=== PATIENT | female | born 1985 | race Caucasian/White ===

== ENCOUNTER 2016-10-07 12:29 | Emergency (ER) | payer OTHER ==
[2016-10-07 13:45] VITALS: BP 109/68
[2016-10-07] MEDS ORDERED: Ibuprofen TAB* 600 MG PO ONE (13:58)
--- NOTE | 2016-10-07 13:59 | UC ---
Lower Extremity/Ankle HPI - HPI Summary HPI Summary: 31 year old female comes into the clinic complaining of left wrist/hand pain and knee discomfort after a slip and fall down the court house steps. Patient came down directly onto the left knee and left hand, then proceeded to fall down at least four more steps. Patient states she has a 10/10 pain in both locations. WRIST: Unable to isolate pain in the left wrist/hand, states it is both sides of the medial wrist, and located in the entire hand. KNEE:Pain located to the knee cap, states she feels pain in the popliteal space. Pain increased with extension of the left leg and when weight bearing. - History of Current Complaint Stated Complaint: KNEE INJURY Time Seen by Provider: 10/07/16 12:52 Hx Obtained From: Patient Hx Last Menstrual Period: pt has mirena and does not get menses ?: No Onset/Duration: Sudden Onset Severity Initially: Severe Severity Currently: Moderate Pain Intensity: 10 - No signs of grimacing, patient able to be distracted Pain Scale Used: 0-10 Numeric Aggravating Factor(s): Standing, Ambulation Alleviating Factor(s): Other - Patient has yet to try any alleviating interventions Able to Bear Weight: Yes - Knee is stable when bearing weight - Risk Factors Gout Risk Factors: Negative Septic Arthritis Risk Factor: Negative - Allergies/Home Medications Allergies/Adverse Reactions: Allergies Allergy/AdvReac Type Severity Reaction Status Date / Time Omeprazole AdvReac Mild GI Upset Verified 10/07/16 13:37 [From Prilosec OTC] Home Medications: Home Medications NK [No Home Medications Reported] 10/07/16 [History Confirmed 10/07/16] PMH/Surg Hx/FS Hx/Imm Hx Previously Healthy: Yes Endocrine History Of: Denies: Diabetes, Thyroid Disease, Hypothyroidism Cardiovascular History Of: Denies: Cardiac Disorders, Hypertension Respiratory History Of: Reports: Asthma Denies: COPD GI/ History Of: Denies: Ulcer Neurological History Of: Denies: TIA, Dementia, Seizures Psychological History Of: Reports: Anxiety, Depression - Surgical History Surgical History: None Surgery Procedure, Year, and Place: none - Family History Known Family History: Positive: Cardiac Disease - Mother: Heart failure, Diabetes - Mother: Kidney/heart failure; DM2; hypothyroidism, Renal Disease - Mother: at age 5151 years old r/t kidney failure - Social History Occupation: Employed Part-time - [place] Lives: With Family - With boyfriend in an apartment Alcohol Use: None Substance Use Type: None Smoking Status (MU): Heavy Every Day Tobacco Smoker Type: Cigarettes Amount Used/How Often: 1/2 -1 ppd Have You Smoked in the Last Year: Yes When Did the Patient Quit Smoking/Using Tobacco: started at age 13 Household Exposure Type: Cigarettes Cessation Counseling: Patient Advised to Stop Review of Systems Constitutional: Negative Skin: Bruising - Left knee Eyes: Negative ENT: Negative Respiratory: Negative Cardiovascular: Negative Gastrointestinal: Negative Genitourinary: Negative Motor: Decreased ROM - Left knee/ wrist limited ROM related to patient's pain Neurovascular: Negative Musculoskeletal: Decreased ROM - Left knee/left wrist, Edema - Left knee Psychological: Anxious All Other Systems Reviewed And Are Negative: Yes Physical Exam Triage Information Reviewed: Yes Appearance: Well-Appearing, No Pain Distress Vital Signs: Initial Vital Signs Temp 97.5 F 10/07/16 13:31 Pulse 66 10/07/16 13:31 Resp 16 10/07/16 13:31 BP 109/68 10/07/16 13:31 Pulse Ox 100 10/07/16 13:31 Vital Signs Reviewed: Yes Eye Exam: Normal Eyes: Positive: Conjunctiva Clear ENT Exam: Normal ENT: Positive: Normal ENT inspection, Hearing grossly normal, Pharynx normal, TMs normal Dental Exam: Normal Neck exam: Normal Neck: Positive: Supple, Nontender, No Lymphadenopathy Respiratory Exam: Normal Respiratory: Positive: Chest non-tender, Lungs clear, Normal breath sounds Cardiovascular Exam: Normal Cardiovascular: Positive: RRR, No Murmur, Pulses Normal Abdominal Exam: Normal Abdomen Description: Positive: Nontender, No Organomegaly, Soft Bowel Sounds: Positive: Present Musculoskeletal: Positive: Strength Limited @ - Left knee/wrist, ROM Limited @ - Left wrist and hand related to pain Psychological Exam: Normal Skin Exam: Other Skin: Positive: Other - Redness and minor swelling to the left knee Lower Extremity Course/Dx - Differential Dx/Diagnosis Provider Diagnoses: Wrist Injury. Knee contusion Discharge - Discharge Plan Condition: Stable Disposition: HOME Patient Education Materials: Knee Pain (ED), Wrist Injury (ED) Referrals: Nicole Barahona MD [Primary Care Provider] - If Needed () Additional Instructions: If symptoms fail to improve within the week, follow-up with primary care provider. Seek immediately medical attention for loss of sensation in the left sided extremities.
--- NOTE | 2016-10-07 14:53 | RAD ---
INDICATION: Left knee injury. Fall. COMPARISON: None TECHNIQUE: AP, lateral, tunnel, and sunrise were obtained. FINDINGS: The bony structures, joint spaces, and soft tissues are normal for age. IMPRESSION: NEGATIVE EXAMINATION.
--- NOTE | 2016-10-07 14:55 | RAD ---
INDICATION: Left hand injury. Pain. COMPARISON: None TECHNIQUE: AP, lateral, and oblique views were obtained. FINDINGS: The bony structures, joint spaces, and soft tissues are normal for age. IMPRESSION: NEGATIVE EXAMINATION.
== END 2016-10-07 15:00 | disposition home or self-care (01) ==
LOC: UCEAST 12:29
DX: S69.92XA Unspecified injury of left wrist, hand and finger(s), initial encounter (principal); S80.02XA Contusion of left knee, initial encounter; W10.9XXA Fall (on) (from) unspecified stairs and steps, initial encounter; Y93.89 Activity, other specified; Y92.240 Courthouse as the place of occurrence of the external cause; Z88.8 Allergy status to other drugs, medicaments and biological substances; F17.210 Nicotine dependence, cigarettes, uncomplicated
CPT/HCPCS: 99213; A9270-GY; G0463

== ENCOUNTER 2018-06-09 20:01 | Emergency (ER) | payer SELFPAY ==
[2018-06-09 20:55] VITALS: BP 123/72
--- NOTE | 2018-06-09 21:05 | UC ---
Upper Extremity HPI - HPI Summary HPI Summary: WHILE REACHING FOR AN OBJECT 3 DAYS AGO, FELT AND HEARD A POP IN HER WRIST. C/O PAIN SINCE. NO HX INJURY. - History of Current Complaint Chief Complaint: UCUpperExtremity Stated Complaint: LEFT WRIST INJURY Time Seen by Provider: 06/09/18 20:53 Hx Obtained From: Patient Hx Last Menstrual Period: pt has mirena and does not get menses Onset/Duration: Sudden Onset Pain Intensity: 9 Aggravating Factor(s): Movement Alleviating Factor(s): Nothing Associated Signs And Symptoms: Negative: Swelling, Bruising, Weakness, Numbness/ Tingling - Allergies/Home Medications Allergies/Adverse Reactions: Allergies Allergy/AdvReac Type Severity Reaction Status Date / Time omeprazole AdvReac GI Upset Verified 06/09/18 20:54 sumatriptan [From Imitrex] AdvReac Nausea And Verified 06/09/18 20:54 Vomiting Home Medications: Home Medications Ibuprofen TAB* [Advil TAB*] 400 mg PO Q6H PRN 06/09/18 [History Confirmed ] PMH/Surg Hx/FS Hx/Imm Hx Respiratory History: Asthma - Surgical History Surgical History: None Surgery Procedure, Year, and Place: none - Family History Known Family History: Positive: Cardiac Disease - Mother: Heart failure, Diabetes - Mother: Kidney/heart failure; DM2; hypothyroidism, Renal Disease - Mother: at age 5151 years old r/t kidney failure - Social History Occupation: Employed Full-time Lives: With Family Alcohol Use: None Substance Use Type: Marijuana Substance Use Comment - Amount & Last Used: weekly Smoking Status (MU): Heavy Every Day Tobacco Smoker Type: Cigarettes Amount Used/How Often: 1/2 -1 ppd Have You Smoked in the Last Year: Yes When Did the Patient Quit Smoking/Using Tobacco: started at age 13 Household Exposure Type: Cigarettes - Immunization History Vaccination Up to Date: Yes Review of Systems Constitutional: Negative Skin: Negative Eyes: Negative ENT: Negative Respiratory: Negative Cardiovascular: Negative Gastrointestinal: Negative Genitourinary: Negative Motor: Negative Neurovascular: Negative Musculoskeletal: Other: - l WRIST PAIN Neurological: Negative Psychological: Negative Is Patient Immunocompromised?: No All Other Systems Reviewed And Are Negative: Yes Physical Exam Triage Information Reviewed: Yes Appearance: Well-Appearing Vital Signs: Initial Vital Signs Temp 97.9 F 06/09/18 20:48 Pulse 67 06/09/18 20:48 Resp 12 06/09/18 20:48 BP 123/72 06/09/18 20:48 Pulse Ox 100 06/09/18 20:48 Vital Signs Reviewed: Yes Eyes: Positive: Conjunctiva Clear ENT: Positive: Normal ENT inspection Neck: Positive: Supple, Nontender Respiratory: Positive: Lungs clear, Normal breath sounds Cardiovascular: Positive: RRR, No Murmur Abdomen Description: Positive: Nontender, No Organomegaly, Soft Bowel Sounds: Positive: Present Neurological: Positive: Other: - LUE: NO GROSS DEFORMITY, SWELLING OR DISCOLORATION. DORSAL AND VOLAR WRIST WITH GENERALIZED TENDERNESS TO PALPATION BUT NO CREPITATION OR INSTABILITY. HAND HAS FULL S/V/M FUNCTION. REST OF ARM HAS FULL S/V/M FUNCTION. Psychological: Positive: Age Appropriate Behavior Skin Exam: Normal Upper Extremity Course/Dx - Course Course Of Treatment: GIVEN HX AND PE, NO CONCERN FOR FX OR INFECTION. - Differential Dx/Diagnosis Provider Diagnoses: SPRAIN LEFT WRIST Discharge - Sign-Out/Discharge Documenting (check all that apply): Patient Departure All imaging exams completed and their final reports reviewed: No Studies - Discharge Plan Condition: Stable Disposition: HOME Patient Education Materials: Wrist Sprain (ED) Referrals: Gennaro Camacho MD [Medical Doctor] - 7 Days Additional Instructions: SPLINT UNTIL CLEARED - Billing Disposition and Condition Condition: STABLE Disposition: Home
== END 2018-06-09 21:07 | disposition home or self-care (01) ==
LOC: UCCORT 20:01
DX: S63.502A Unspecified sprain of left wrist, initial encounter (principal); J45.909 Unspecified asthma, uncomplicated; F17.210 Nicotine dependence, cigarettes, uncomplicated; Z88.8 Allergy status to other drugs, medicaments and biological substances; X50.9XXA Other and unspecified overexertion or strenuous movements or postures, initial encounter; Y92.9 Unspecified place or not applicable
CPT/HCPCS: 99212; G0463

== ENCOUNTER → 2018-10-29 13:51 | Emergency (ER) | payer OTHER | END | disposition left against medical advice (07) | LOC: UCCORT 13:51 | DX: Z53.21 Procedure and treatment not carried out due to patient leaving prior to being seen by health care provider (principal) ==

== ENCOUNTER 2018-12-05 08:09 | Emergency (ER) | payer OTHER ==
[2018-12-05 08:20] VITALS: BP 116/70
--- NOTE | 2018-12-05 08:39 | UC ---
FLU HPI - HPI Summary HPI Summary: 33-year-old female presents with 2 day history of general malaise, chills, fatigue, body aches, nasal congestion, clear nasal discharge, sore throat, occasional productive cough, and posttussive emesis. Reports yesterday had a low-grade fever of 99.8 F. Did no receive her flu shot this year. Denies ear pain, dysphagia, chest pain, shortness of breath, abdominal pain, or diarrhea. - History of Current Complaint Chief Complaint: UCRespiratory Stated Complaint: THROAT/FLU SXS Time Seen by Provider: 12/05/18 08:19 Hx Obtained From: Patient Hx Last Menstrual Period: MIRENA IUD Pain Intensity: 8 - Allergy/Home Medications Allergies/Adverse Reactions: Allergies Allergy/AdvReac Type Severity Reaction Status Date / Time codeine Allergy Vomiting Verified 12/05/18 08:18 omeprazole AdvReac GI Upset Verified 12/05/18 08:18 sumatriptan [From Imitrex] AdvReac Nausea And Verified 12/05/18 08:18 Vomiting PMH/Surg Hx/FS Hx/Imm Hx Previously Healthy: Yes GI/ History: Gastroesophageal Reflux Neurological History: Migraine - Surgical History Surgical History: None Surgery Procedure, Year, and Place: none - Family History Known Family History: Positive: Cardiac Disease - Mother: Heart failure, Diabetes - Mother: Kidney/heart failure; DM2; hypothyroidism, Renal Disease - Mother: at age 5151 years old r/t kidney failure - Social History Occupation: Employed Full-time Lives: With Family Alcohol Use: None Substance Use Type: None Substance Use Comment - Amount & Last Used: weekly Smoking Status (MU): Former Smoker Type: eCigarettes Amount Used/How Often: 1/2 -1 ppd Have You Smoked in the Last Year: Yes When Did the Patient Quit Smoking/Using Tobacco: started at age 13 Household Exposure Type: Cigarettes - Immunization History Vaccination Up to Date: Yes Review of Systems All Other Systems Reviewed And Are Negative: Yes Constitutional: Positive: Chills, Fatigue Skin: Negative: Rash Eyes: Negative: Drainage, Eye Redness ENT: Positive: Sore Throat, Nasal Discharge, Sinus Congestion. Negative: Ear Ache, Sinus Pain/Tenderness Respiratory: Positive: Cough. Negative: Shortness Of Breath Cardiovascular: Negative: Palpitations, Chest Pain Gastrointestinal: Positive: Vomiting, Nausea. Negative: Abdominal Pain, Diarrhea Genitourinary: Positive: Negative Musculoskeletal: Positive: Negative Neurological: Positive: Negative Is Patient Immunocompromised?: No Physical Exam - Summary Physical Exam Summary: GENERAL APPEARANCE: Well developed, well nourished, alert and cooperative, and appears to be in no acute distress. EYES: Conjunctiva clear. No drainage. Vision is grossly intact. EARS: External auditory canals and tympanic membranes clear, hearing grossly intact. NOSE: Moderate nasal congestion with nasal discharge. THROAT: Mild pharyngeal erythema. No tonsilar inflammation, swelling, exudate, or lesions. Uvula midline. Oral cavity normal. Teeth and gingiva in good general condition. NECK: Neck supple, non-tender without lymphadenopathy. CARDIAC: Normal S1 and S2. No S3, S4 or murmurs. Rhythm is regular. There is no peripheral edema, cyanosis or pallor. Extremities are warm and well perfused. Capillary refill is less than 2 seconds. Peripheral pulses intact. LUNGS: Clear to auscultation without rales, rhonchi, wheezing or diminished breath sounds. Dry, non-productive cough. ABDOMEN: Positive bowel sounds. Soft, nondistended, nontender. No guarding or rebound. No masses or hepatosplenomegally. MUSKULOSKELETAL: ROM intact to all extremities. No joint erythema or tenderness. Normal muscular development. Normal gait. SKIN: Skin normal color, texture and turgor with no lesions or eruptions. Triage Information Reviewed: Yes Vital Signs: Initial Vital Signs Temp 98 F 12/05/18 08:18 Pulse 79 12/05/18 08:18 Resp 20 12/05/18 08:18 BP 116/70 12/05/18 08:18 Pulse Ox 99 12/05/18 08:18 Vital Signs Reviewed: Yes Flu Course/Dx - Course Course Of Treatment: 33-year-old female presents with 2 day history of general malaise, chills, fatigue, body aches, nasal congestion, clear nasal discharge, sore throat, occasional productive cough, and posttussive emesis. Reports yesterday had a low-grade fever of 99.8 F. Did no receive her flu shot this year. Denies ear pain, dysphagia, chest pain, shortness of breath, abdominal pain, or diarrhea. Afebrile. Vital signs stable. Exam reveals an adult female in no acute distress with moderate nasal congestion, clear nasal discharge, mild pharyngeal erythema without tonsillar swelling or exudate, no cervical lymphadenopathy, clear bilateral breath sounds, a dry nonproductive cough, soft nontender abdomen , and otherwise unremarkable exam. Discussed with patient and her symptoms are consistent with influenza. Discussed risks and benefits of treating with Tamiflu which patient is electing to start at this time. Additionally recommending symptomatic treatment including Tessalon Perles one capsule every 8 hours as needed for cough. She is to return here or follow up with her primary care provider in 7 days if symptoms do not improve. Anticipatory guidance and warning symptoms were reviewed with the patient. Verbalizes understanding and agrees with plan of care. - Differential Dx/Diagnosis Differential Diagnosis/HQI/PQRI: Bronchitis, Influenza, Pneumonia, Upper Respiratory Infection Provider Diagnosis: Influenza Discharge - Sign-Out/Discharge Documenting (check all that apply): Patient Departure All imaging exams completed and their final reports reviewed: No Studies - Discharge Plan Condition: Stable Disposition: HOME Prescriptions: Benzonatate CAP* [Tessalon 100 MG CAP*] 100 mg PO TID PRN #30 cap PRN Reason: Cough Oseltamivir CAP* [Tamiflu CAP*] 75 mg PO BID #10 cap Patient Education Materials: Influenza (ED) Forms: *Work Release Referrals: No Primary Care Phys,NOPCP [Primary Care Provider] - Additional Instructions: Your history and exam are consistent with influenza although I cannot exclude another viral illness. Start Tamiflu 1 capsule twice a day for 5 days. Get plenty of rest. Drink plenty of fluids to avoid dehydration especially if you are running any fever. Take over the counter acetaminophen (Tylenol) or ibuprofen (Advil, Motrin) according to directions as needed for pain or fever. Take Tessalon Perles 1 cap every 8 hours as needed for cough. Use an over the counter decongestant such as Sudafed according to directions for the congestion. Use salt water gargles several times a day if you have a sore throat. You may also use Chloraseptic spray or Cepacol lonzenges according to directions which contain a numbing medication and can provide some temporary relief from your sore throat. Return here or follow up with your primary care provider in 7 days if symptoms persist. Seek immediate medical attention in the emergency room if you have fever greater than 100.5 F despite taking acetaminophen or ibuprofen, have chest pain , difficulty breathing, are unable to swallow, or have any worsening of symptoms. - Billing Disposition and Condition Condition: STABLE Disposition: Home - Attestation Statements Provider Attestation: Per institutional requirements, I have reviewed the chart, however, I was not consulted specifically or made aware of this patient by the midlevel provider. I did not personally evaluate, interact with , or disposition this patient
== END 2018-12-05 08:46 | disposition home or self-care (01) ==
LOC: UCCORT 08:09
DX: J11.1 Influenza due to unidentified influenza virus with other respiratory manifestations (principal); Z88.5 Allergy status to narcotic agent; Z88.8 Allergy status to other drugs, medicaments and biological substances; Z87.891 Personal history of nicotine dependence
CPT/HCPCS: 99212; G0463

== ENCOUNTER 2019-01-13 10:12 | Emergency (ER) | payer OTHER ==
[2019-01-13 10:45] VITALS: BP 98/69
--- NOTE | 2019-01-13 11:07 | UC ---
Lower Extremity/Ankle HPI - HPI Summary HPI Summary: Patient presents to urgent care for evaluation of injuring her right lower leg. Patient states part of her door frame fell on her when she was opening the door. Patient sustained ecchymosis and abrasion to her right lateral lower ankle. Patient states she had throbbing pain yesterday. Patient took Motrin yesterday and applied ice 1. Pt states continue to have pain which is worse when she moves her foot up and down. No paresthesias. No weakness. No knee pain or hip pain. Patient states her last tetanus was less than one year. Patient's is not . Medications reviewed this visit - History of Current Complaint Chief Complaint: UCLowerExtremity Stated Complaint: RIGHT ANKLE INJURY Time Seen by Provider: 01/13/19 10:39 Hx Obtained From: Patient Hx Last Menstrual Period: unknown ?: No Onset/Duration: Sudden Onset Severity Initially: Moderate Severity Currently: Moderate Pain Intensity: 9 Pain Scale Used: 0-10 Numeric - Allergies/Home Medications Allergies/Adverse Reactions: Allergies Allergy/AdvReac Type Severity Reaction Status Date / Time codeine Allergy Vomiting Verified 01/13/19 10:38 omeprazole AdvReac GI Upset Verified 01/13/19 10:38 sumatriptan [From Imitrex] AdvReac Nausea And Verified 01/13/19 10:38 Vomiting Home Medications: Home Medications Ibuprofen TAB* [Advil TAB*] 800 mg PO Q6H PRN 01/13/19 [History Confirmed ] Levonorgestrel (Iud) [Mirena IUD] 20 mcg IU ONCE 01/13/19 [History Confirmed ] PMH/Surg Hx/FS Hx/Imm Hx Previously Healthy: Yes - Surgical History Surgical History: None Surgery Procedure, Year, and Place: none - Family History Known Family History: Positive: Cardiac Disease - Mother: Heart failure, Diabetes - Mother: Kidney/heart failure; DM2; hypothyroidism, Renal Disease - Mother: at age 5151 years old r/t kidney failure - Social History Occupation: Employed Full-time Lives: With Family Alcohol Use: None Substance Use Type: Marijuana Substance Use Comment - Amount & Last Used: occasional Smoking Status (MU): Heavy Every Day Tobacco Smoker Type: eCigarettes Amount Used/How Often: 1/2 -1 ppd Have You Smoked in the Last Year: Yes When Did the Patient Quit Smoking/Using Tobacco: started at age 13 Household Exposure Type: Cigarettes - Immunization History Vaccination Up to Date: Yes Review of Systems All Other Systems Reviewed And Are Negative: Yes Constitutional: Positive: Negative Skin: Positive: Bruising - ecchymosis, abraison RLE, Other Musculoskeletal: Positive: Decreased ROM Neurological: Positive: Negative Physical Exam - Summary Physical Exam Summary: Vital Signs Reviewed: Yes A+Ox3, no distress Eyes: Conjunctiva Clear ENT: Hearing grossly normal neck: supple Respiratory: Positive: No respiratory distress, No accessory muscle use Cardiovascular: skin color reflect adequate perfusion 2+ DP, PT CBT , 2 sec Musculoskeletal Exam:+ SLE + flex.ext knee, pain with flex.ext ankle in distal tib/fib No crepitus No pain tarsals, metatarsals, phalanges Neurological: Positive: Alert, ambulatory without difficulty, + gross sensation throughout Psychological: Positive: Normal Response To Family Skin: Positive: no rash, right lateral LE prox to lat mal, pt with 2x2cm ecchymosis, small non suturable central abraison no crepitus Triage Information Reviewed: Yes Vital Signs: Initial Vital Signs Temp 98.1 F 01/13/19 10:39 Pulse 70 01/13/19 10:39 Resp 17 01/13/19 10:39 BP 98/69 01/13/19 10:39 Pulse Ox 97 01/13/19 10:39 Diagnostics - Radiology No standard instances Radiology Interpretation Completed By: Radiologist - Patient Name: GERARD SARGENT Medical Record#: [id number] Ordering Physician: Amina Coto MD Acct.#: [id number] : 1985 Age: 33 Sex: F Location: [facility] Exam Date: 01/13/19 1049 ADM Status: REG ER Order Information: ANKLE RIGHT 3+VWS Accession Number: [id number] CPT: 56403 HISTORY: right ankle twist . COMPARISONS: None relevant available at the time of dictation. VIEWS: 3, Frontal, lateral, and oblique views of the right ankle FINDINGS: BONE DENSITY: Normal. BONES: There is no displaced fracture. JOINTS: There is no arthropathy. ALIGNMENT: There is no dislocation. SOFT TISSUES: Unremarkable. OTHER FINDINGS: None. IMPRESSION : NO ACUTE OSSEOUS INJURY. IF SYMPTOMS PERSIST, RECOMMEND REPEAT IMAGING. ___ <Electronically signed by Karlos Sparrow MD in [place]> 01/13/191101 Dictated By: Karlos Sparrow MD Dictated Date/Time: 01/13/191101 Transcribed Date/Time: 1101 Copy to: CC:Amina Coto MD; No Primary Care Phys,NOPCP Imaging - [facility] Imaging - [facility] Imaging - [facility] [address] [facility] [address] [facility] [address] ph [phone]) ph ([phone]) ph ([phone]) This report is only to be considered final once signed by the Provider (s) as displayed in the "<Electronically Signed by >" field (s). Absence of a signature indicates the report is in a draft status and still needs to be finalized. In the event this document was created by someone other than the signing Provider, the individual initiating the document will be listed in the "Entered by:" or "Dictated by:" landaverde. 1 of 1 Lower Extremity Course/Dx - Course Course Of Treatment: Patient presents for evaluation of her right ankle. Patient part of the door frame following yesterday. Patient with a small area of ecchymosis and abrasion since this time. Patient took Motrin yesterday. Nothing today. Patient states she's When she walks. 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 We'll check imaging which is negative for fracture. Vin wrap gel splint and splint. Crutches. Elevate. Motrin/out. Follow up PCP. We'll give contact information for Isa Wilson reviewed wound care tdap is UTD - Differential Dx/Diagnosis Provider Diagnosis: Ankle contusion Discharge - Sign-Out/Discharge Documenting (check all that apply): Patient Departure All imaging exams completed and their final reports reviewed: Yes - Discharge Plan Condition: Stable Disposition: HOME Patient Education Materials: Ankle Sprain (ED), Contusion in Adults (ED) Forms: *Work Release Referrals: No Primary Care Phys,NOPCP [Primary Care Provider] - [facility] REFERRAL [Outside] Additional Instructions: -wear vin wrap for comfort and support -apply ice (20 min at a time) every 2-3 hours for the next 2 days -use crutches until you can walk normally without a limp -Elevate your leg - this will help with swelling and pain - Alternate ibuprofen (advil, Motrin) 600mg and tylenol every 3 hours for pain. Take with food. Do NOT take for more than 4-5 days -Contact your doctor to arrange a follow-up appointment next week. Contact your doctor or return with questions or concerns - Billing Disposition and Condition Condition: STABLE Disposition: Home
== END 2019-01-13 11:28 | disposition home or self-care (01) ==
LOC: UCCORT 10:12
DX: S90.01XA Contusion of right ankle, initial encounter (principal); Z88.8 Allergy status to other drugs, medicaments and biological substances; Z88.5 Allergy status to narcotic agent; F17.290 Nicotine dependence, other tobacco product, uncomplicated; W20.8XXA Other cause of strike by thrown, projected or falling object, initial encounter; Y92.9 Unspecified place or not applicable
CPT/HCPCS: 99213; G0463

== ENCOUNTER 2019-06-10 12:19 | Emergency (ER) | payer OTHER ==
[2019-06-10 13:32] VITALS: BP 108/65
[2019-06-10 14:40] LABS: Influenza A Molecular NEGATIVE (Negative); Influenza B Molecular NEGATIVE (Negative)
--- NOTE | 2019-06-10 14:54 | UC ---
Throat Pain/Nasal Nabeel HPI - HPI Summary HPI Summary: 33-year-old woman comes in with a chief complaint of approximately 5 days of upper respiratory tract infection symptoms and also nausea vomiting and diarrhea. She's got green rhinorrhea discussed sore throat. She also gets some chest congestion with occasional wheezing. He has intermittent abdominal cramping she does have nausea and reports some vomiting. Diarrhea is watery has not seen any blood in the diarrhea. No recent fevers. Does have body aches. [id number] medicine with very little relief. - History of Current Complaint Chief Complaint: UCGeneralIllness Stated Complaint: DIARRHEA COUGH CONGESTION VOMITING Time Seen by Provider: 06/10/19 14:44 Hx Last Menstrual Period: pt has IUD Pain Intensity: 9 - Allergies/Home Medications Allergies/Adverse Reactions: Allergies Allergy/AdvReac Type Severity Reaction Status Date / Time codeine Allergy Vomiting Verified 06/10/19 13:32 omeprazole AdvReac GI Upset Verified 06/10/19 13:32 sumatriptan [From Imitrex] AdvReac Nausea And Verified 06/10/19 13:32 Vomiting Home Medications: Home Medications Guaifen/Dextromethorphan/PE [Mucinex Fast-Max Congest-Cough] 1 tab PO ONCE 06/10 [History Confirmed 06/10/19] PMH/Surg Hx/FS Hx/Imm Hx Previously Healthy: Yes - Surgical History Surgical History: None Surgery Procedure, Year, and Place: none - Family History Known Family History: Positive: Cardiac Disease - Mother: Heart failure, Diabetes - Mother: Kidney/heart failure; DM2; hypothyroidism, Renal Disease - Mother: at age 5151 years old r/t kidney failure - Social History Alcohol Use: None Substance Use Type: None Substance Use Comment - Amount & Last Used: occasional Smoking Status (MU): Heavy Every Day Tobacco Smoker Type: eCigarettes Amount Used/How Often: 1/2 -1 ppd Have You Smoked in the Last Year: Yes When Did the Patient Quit Smoking/Using Tobacco: started at age 13 Household Exposure Type: Cigarettes - Immunization History Vaccination Up to Date: Yes Review of Systems All Other Systems Reviewed And Are Negative: Yes Constitutional: Positive: Other - SEE HPI Skin: Positive: Negative Eyes: Positive: Negative ENT: Positive: Sore Throat, Sinus Congestion, Sinus Pain/Tenderness Respiratory: Positive: Cough, Other - SEE HPI Cardiovascular: Positive: Negative Gastrointestinal: Positive: Abdominal Pain, Vomiting, Diarrhea, Nausea Genitourinary: Positive: Negative Motor: Positive: Negative Neurovascular: Positive: Negative Musculoskeletal: Positive: Myalgia Neurological: Positive: Negative Psychological: Positive: Negative Is Patient Immunocompromised?: No Physical Exam Triage Information Reviewed: Yes Appearance: No Pain Distress, Well-Nourished, Ill-Appearing - MILD Vital Signs: Initial Vital Signs Temp 99 F 06/10/19 13:27 Pulse 69 06/10/19 13:27 Resp 18 06/10/19 13:27 BP 108/65 06/10/19 13:27 Pulse Ox 100 06/10/19 13:27 Vital Signs Reviewed: Yes Eye Exam: Normal Eyes: Positive: Conjunctiva Clear ENT: Positive: Pharyngeal erythema, Nasal congestion, Nasal drainage, TMs normal Neck: Positive: Supple Respiratory: Positive: Lungs clear, Normal breath sounds, No respiratory distress Cardiovascular: Positive: RRR Abdomen Description: Positive: Nontender, Soft Bowel Sounds: Positive: Present Musculoskeletal: Positive: Strength Intact, ROM Intact Neurological: Positive: Alert Psychological: Positive: Normal Response To Family, Age Appropriate Behavior Skin Exam: Normal Throat Pain/Nasal Course/Dx - Course Course Of Treatment: DISCUSSED VIRAL VERSES BACTERIAL INFECTION AND THE ROLE OF ANTIBIOTICS. THE PATIENT PREFERS TO BE ON ANTIBIOTICS AT THIS TIME. - Differential Dx/Diagnosis Provider Diagnosis: Upper respiratory infection, Nausea vomiting and diarrhea Discharge ED - Sign-Out/Discharge Documenting (check all that apply): Patient Departure All imaging exams completed and their final reports reviewed: No Studies - Discharge Plan Condition: Stable Disposition: HOME Prescriptions: Albuterol HFA INHALER* [Ventolin HFA Inhaler*] 2 puff INH Q4H PRN #1 mdi PRN Reason: Wheezing Amoxicillin PO (*) [Amoxicillin 875 MG (*)] 875 mg PO BID #20 tab Ondansetron ODT TAB* [Zofran 4 MG Odt TAB*] 4 mg PO Q6H PRN #10 tab.odt PRN Reason: Nausea Patient Education Materials: Upper Respiratory Infection (ED), Acute Nausea and Vomiting (ED), Acute Diarrhea (ED) Forms: *Work Release Referrals: [facility] [Outside] Additional Instructions: FOLLOW UP WITH YOUR DOCTOR IF NOT COMPLETELY IMPROVED. GET RECHECKED SOONER IF YOUR CONDITION WORSENS OR ANY QUESTIONS OR CONCERNS. - Billing Disposition and Condition Condition: STABLE Disposition: Home
== END 2019-06-10 15:00 | disposition home or self-care (01) ==
LOC: UCCORT 12:19
DX: J06.9 Acute upper respiratory infection, unspecified (principal); R11.2 Nausea with vomiting, unspecified; R19.7 Diarrhea, unspecified; F17.290 Nicotine dependence, other tobacco product, uncomplicated
CPT/HCPCS: 99212; G0463

== ENCOUNTER 2019-06-23 12:38 | Emergency (ER) | payer OTHER ==
[2019-06-23 12:58] VITALS: BP 118/70
--- NOTE | 2019-06-23 13:10 | UC ---
Throat Pain/Nasal Nabeel HPI - HPI Summary HPI Summary: sore throat x 7 days + cough , nasal congestion, pnd cough is dry , harsh just finished amoxicillin for sinusitis no fever, + chills, body aches - History of Current Complaint Chief Complaint: UCRespiratory Stated Complaint: ST Time Seen by Provider: 06/23/19 12:46 Hx Obtained From: Patient Hx Last Menstrual Period: PT HAS THE MIRENA, DOES NOT HAVE PERIODS ?: No Onset/Duration: Gradual Onset, Lasting Weeks - 3, Still Present Severity: Moderate Pain Intensity: 10 Cough: Nonproductive Associated Signs & Symptoms: Positive: Sinus Discomfort, Nasal Discharge. Negative: Wheezing, Hoarseness, Fever, Vomiting, Rash - Allergies/Home Medications Allergies/Adverse Reactions: Allergies Allergy/AdvReac Type Severity Reaction Status Date / Time bee venom protein (honey bee) Allergy Unknown localized Verified 06/23/19 12:49 swelling and sob codeine Allergy Vomiting Verified 06/23/19 12:48 omeprazole AdvReac GI Upset Verified 06/23/19 12:48 sumatriptan [From Imitrex] AdvReac Nausea And Verified 06/23/19 12:48 Vomiting PMH/Surg Hx/FS Hx/Imm Hx Respiratory History: Asthma - Surgical History Surgical History: None Surgery Procedure, Year, and Place: none - Family History Known Family History: Positive: Cardiac Disease - Mother: Heart failure, Diabetes - Mother: Kidney/heart failure; DM2; hypothyroidism, Renal Disease - Mother: at age 5151 years old r/t kidney failure - Social History Alcohol Use: None Substance Use Type: Marijuana Substance Use Comment - Amount & Last Used: occasional Smoking Status (MU): Heavy Every Day Tobacco Smoker Type: eCigarettes Amount Used/How Often: 1/2 -1 ppd Have You Smoked in the Last Year: Yes When Did the Patient Quit Smoking/Using Tobacco: started at age 13 Household Exposure Type: Cigarettes - Immunization History Vaccination Up to Date: Yes Review of Systems All Other Systems Reviewed And Are Negative: Yes Constitutional: Positive: Negative Skin: Positive: Negative Eyes: Positive: Negative ENT: Positive: Sore Throat, Ear Ache, Nasal Discharge Respiratory: Positive: Cough Cardiovascular: Positive: Negative Is Patient Immunocompromised?: No Physical Exam Triage Information Reviewed: Yes Appearance: Well-Appearing, No Pain Distress, Well-Nourished Vital Signs: Initial Vital Signs Temp 97 F 10/03/19 12:51 Pulse 66 06/23/19 12:51 Resp 16 06/23/19 12:51 BP 118/70 06/23/19 12:51 Pulse Ox 99 06/23/19 12:51 Vital Signs Reviewed: Yes Eye Exam: Normal Eyes: Positive: Conjunctiva Clear ENT: Positive: Normal ENT inspection, Hearing grossly normal, Pharynx normal, Nasal congestion, Nasal drainage, TMs normal. Negative: Pharyngeal erythema, TM bulging, TM dull, TM red, Tonsillar swelling, Tonsillar exudate, Sinus tenderness Neck: Positive: Supple, Nontender, No Lymphadenopathy Respiratory: Positive: Chest non-tender, Lungs clear, Normal breath sounds Cardiovascular: Positive: RRR, No Murmur Skin Exam: Normal Throat Pain/Nasal Course/Dx - Differential Dx/Diagnosis Provider Diagnosis: URI (upper respiratory infection) Discharge ED - Sign-Out/Discharge Documenting (check all that apply): Patient Departure All imaging exams completed and their final reports reviewed: No Studies - Discharge Plan Condition: Stable Disposition: HOME Patient Education Materials: Upper Respiratory Infection (ED) Forms: *Work Release Referrals: No Primary Care Phys,NOPCP [Primary Care Provider] - If Needed - Billing Disposition and Condition Condition: STABLE Disposition: Home
== END 2019-06-23 13:16 | disposition home or self-care (01) ==
LOC: UCCORT 12:38
DX: J06.9 Acute upper respiratory infection, unspecified (principal); J45.909 Unspecified asthma, uncomplicated; F17.210 Nicotine dependence, cigarettes, uncomplicated; Z91.030 Bee allergy status; Z88.8 Allergy status to other drugs, medicaments and biological substances; Z88.5 Allergy status to narcotic agent
CPT/HCPCS: 87651; 99211; G0463